=== PATIENT | male | born 1950 | race Caucasian/White ===

== ENCOUNTER → 2017-09-18 09:49 | Emergency (ER) | payer MEDICARE ==
[~2017-09-18 09:49] MED LIST: Meclizine TAB* 12.5 MG PO ONE
[2017-09-18 11:24] LABS: ABS Basophils 0 10^3/ul (0-0.2); ABS Eosinophils 0.1 10^3/ul (0-0.6); ABS Lymphocytes 1.3 10^3/ul (1.0-4.8); ABS Monocytes 0.5 10^3/ul (0-0.8); ABS Neutrophils 5.3 10^3/ul (1.5-7.7); ABS Nucleated RBC 0 10^3/ul; Eosinophil % 1.1 % (0-6); Hematocrit 43 % (42-52); Lymphocyte % 17.8 % (25-47); Mean Corpuscular HGB Conc 34 g/dl (31-36); Mean Corpuscular Hemoglobin 31 pg (27-31); Mean Corpuscular Volume 90 fL (80-94); Mean Platelet Volume 6.5 um3 (7.4-10.4); Nucleated Red Blood Cells % 0.3; Platelet Count 378 10^3/ul (150-450); Red Blood Count 4.84 10^6/ul (4.0-5.4); Red Cell Distribution Width 14 % (10.5-15); White Blood Count 7.2 10^3/ul (3.5-10.8)
--- NOTE | 2017-09-18 11:24 | RAD ---
Indication: Hypertension, dizziness. Single frontal view of the chest performed at 1103 hours was reviewed. No prior study is available for comparison. No mediastinal shift is noted. Heart is of normal size and configuration. Lung powell appear clear. IMPRESSION: NO ACTIVE CARDIOPULMONARY DISEASE IS NOTED.
[2017-09-18 11:32] LABS: INR 0.9 (0.77-1.02)
[2017-09-18 11:45] LABS: EGFR Non-African American 78.6 (>60)
--- NOTE | 2017-09-18 12:14 | RAD ---
HISTORY: Dizziness COMPARISONS: None TECHNIQUE: Multiple contiguous axial CT scans were obtained of the head without intravenous contrast. FINDINGS: HEMORRHAGE/INFARCT: There is no hemorrhage or acute infarct. MASSES/SHIFT: There is no mass or shift. EXTRA-AXIAL SPACES: There are no extra-axial fluid collections. SULCI AND VENTRICLES: The sulci and ventricles are normal in size and position for the patient's stated age. CEREBRUM: There are no focal parenchymal abnormalities. BRAINSTEM: There are no focal parenchymal abnormalities. CEREBELLUM: There are no focal parenchymal abnormalities. VESSELS: The vessels are grossly normal. PARANASAL SINUSES: The paranasal sinuses are clear. ORBITS: The orbits are unremarkable. BONES AND SOFT TISSUE: No bone or soft tissue abnormalities are noted. OTHER: None IMPRESSION: NO ACUTE INTRACRANIAL PATHOLOGY.
--- NOTE | 2017-09-18 13:14 | ED ---
Javier Jade Jennifer, scribed for Eduin Mccloud MD on 09/18/17 at 1025 . Dizziness - HPI Summary HPI Summary: The patient is a 67 y/o M who presents with intermittent dizziness for three days. The patient reports that he went to work this morning when the spinning dizziness worsened at 0900. He describes that moving his head and rolling over in bed worsens the dizziness. Patient additionally complains of a runny nose and cough. He denies headache, abdominal pain, visual changes, difficulty with speech, weakness, numbness, and unsteady gait. The patient adds that he stopped taking diabetic medication two days ago because he thought that might have been causing the dizziness. He has not taken his diabetic or blood pressure medication today. - History Of Current Complaint Chief Complaint: EDDizziness Stated Complaint: DIZZINESS Time Seen by Provider: 09/18/17 10:18 Hx Obtained From: Patient Onset/Duration: Still Present, Suddenly Timing: Intermittent Episode Lasting Severity Initially: Mild Severity Currently: Mild Character: Head Spinning Aggravating Factor(s): Position Change - Rolling over in bed, Change In Head Position Alleviating Factor(s): Nothing - Allergies/Home Medications Allergies/Adverse Reactions: Allergies Allergy/AdvReac Type Severity Reaction Status Date / Time No Known Allergies Allergy Verified 09/18/17 09:53 Home Medications: Home Medications Benazepril (NF) [Lotensin (NF)] 10 mg PO BID 09/18/17 [History Confirmed ] Pravastatin (NF) [Pravachol (NF)] 40 mg PO BEDTIME 09/18/17 [History Confirmed 09/18/17] amLODIPine TAB* [Norvasc 5 mg TAB*] 10 mg PO DAILY 09/18/17 [History Confirmed 09/18/17] metFORMIN* [Glucophage 500 MG TAB *] 500 mg PO BID 09/18/17 [History Confirmed 09/18/17] PMH/Surg Hx/FS Hx/Imm Hx Endocrine/Hematology History: Reports: Hx Diabetes Cardiovascular History: Reports: Hx Hypertension Infectious Disease History: No Infectious Disease History: Denies: Traveled Outside the [place] in Last 30 Days - Family History Known Family History: Positive: Hypertension - Father - Social History Alcohol Use: Occasionally Hx Substance Use: No Substance Use Type: Reports: None Hx Tobacco Use: Yes Smoking Status (MU): Former Smoker Review of Systems Eyes: Negative - Visual changes Positive: Nasal Discharge Positive: Cough Negative: Abdominal Pain Neurological: Negative - unsteady gait, Other - Dizziness Negative: Headache, Weakness, Numbness, Slurred Speech All Other Systems Reviewed And Are Negative: Yes Physical Exam - Summary Physical Exam Summary: General: well-appearing, no pain distress Skin: warm, color reflects adequate perfusion, dry Head: normal Eyes: EOMI, DARYL ENT: normal Neck: supple, nontender Respiratory: CTA, breath sounds present Cardiovascular: RRR Abdomen: soft, nontender Bowel: present Musculoskeletal: normal, strength/ROM intact Neurological: sensory/motor intact, A&O x3 Psychological: affect/mood appropriate Triage Information Reviewed: Yes Vital Signs On Initial Exam: Initial Vitals Temp Pulse Resp BP Pulse Ox 97.7 F 69 16 168/86 95 09/18/17 09:53 09/18/17 09:53 09/18/17 09:53 09/18/17 09:53 09/18/17 09:53 Vital Signs Reviewed: Yes Diagnostics - Vital Signs Vital Signs Temp Pulse Resp BP Pulse Ox 09/18/17 09:53 97.7 F 69 16 168/86 95 - Laboratory Lab Results: Lab Results 09/18/17 09/18/17 09/18/17 Range/Units 11:07 11:09 11:09 WBC 7.2 (3.5-10.8) 10^3/ul RBC 4.84 (4.0-5.4) 10^6/ul Hgb 15.0 (14.0-18.0) g/dl Hct 43 (42-52) % MCV 90 (80-94) fL MCH 31 (27-31) pg MCHC 34 (31-36) g/dl RDW 14 (10.5-15) % Plt Count 378 (150-450) 10^3/ul MPV 6.5 L (7.4-10.4) um3 Neut % (Auto) 73.7 (38-83) % Lymph % (Auto) 17.8 L (25-47) % [place] % (Auto) 6.7 (0-7) % Eos % (Auto) 1.1 (0-6) % Baso % (Auto) 0.7 (0-2) % Absolute Neuts (auto) 5.3 (1.5-7.7) 10^3/ul Absolute Lymphs (auto) 1.3 (1.0-4.8) 10^3/ul Absolute Monos (auto) 0.5 (0-0.8) 10^3/ul Absolute Eos (auto) 0.1 (0-0.6) 10^3/ul Absolute Basos (auto) 0 (0-0.2) 10^3/ul Absolute Nucleated RBC 0 10^3/ul Nucleated RBC % 0.3 INR (Anticoag Therapy) 0.90 (0.77-1.02) APTT 35.0 (26.0-36.3) seconds Sodium (139-145) mmol/L Potassium (3.5-5.0) mmol/L Chloride (101-111) mmol/L Carbon Dioxide (22-32) mmol/L Anion Gap (2-11) mmol/L BUN (6-24) mg/dL Creatinine (0.67-1.17) mg/dL Est GFR ( Amer) (>60) Est GFR (Non-Af Amer) (>60) BUN/Creatinine Ratio (8-20) Glucose (70-100) mg/dL Lactic Acid 1.0 (0.5-2.0) mmol/L Calcium (8.6-10.3) mg/dL Magnesium (1.9-2.7) mg/dL Total Bilirubin (0.2-1.0) mg/dL AST (13-39) U/L ALT (7-52) U/L Alkaline Phosphatase (34-104) U/L Troponin I (<0.04) ng/mL C-Reactive Protein (< 5.00) mg/L B-Natriuretic Peptide ( - 100) pg/mL Total Protein (6.4-8.9) g/dL Albumin (3.2-5.2) g/dL Globulin (2-4) g/dL Albumin/Globulin Ratio (1-3) Lipase (11.0-82.0) U/L TSH 18 09/18/17 Range/Units 11:09 11:10 WBC (3.5-10.8) 10^3/ul RBC (4.0-5.4) 10^6/ul Hgb (14.0-18.0) g/dl Hct (42-52) % MCV (80-94) fL MCH (27-31) pg MCHC (31-36) g/dl RDW (10.5-15) % Plt Count (150-450) 10^3/ul MPV (7.4-10.4) um3 Neut % (Auto) (38-83) % Lymph % (Auto) (25-47) % [place] % (Auto) (0-7) % Eos % (Auto) (0-6) % Baso % (Auto) (0-2) % Absolute Neuts (auto) (1.5-7.7) 10^3/ul Absolute Lymphs (auto) (1.0-4.8) 10^3/ul Absolute Monos (auto) (0-0.8) 10^3/ul Absolute Eos (auto) (0-0.6) 10^3/ul Absolute Basos (auto) (0-0.2) 10^3/ul Absolute Nucleated RBC 10^3/ul Nucleated RBC % INR (Anticoag Therapy) (0.77-1.02) APTT (26.0-36.3) seconds Sodium 135 L (139-145) mmol/L Potassium 3.9 (3.5-5.0) mmol/L Chloride 102 (101-111) mmol/L Carbon Dioxide 24 (22-32) mmol/L Anion Gap 9 (2-11) mmol/L BUN 18 (6-24) mg/dL Creatinine 0.95 (0.67-1.17) mg/dL Est GFR ( Amer) 101.1 (>60) Est GFR (Non-Af Amer) 78.6 (>60) BUN/Creatinine Ratio 18.9 (8-20) Glucose 169 H (70-100) mg/dL Lactic Acid (0.5-2.0) mmol/L Calcium 8.9 (8.6-10.3) mg/dL Magnesium 1.9 (1.9-2.7) mg/dL Total Bilirubin 1.00 (0.2-1.0) mg/dL AST 19 (13-39) U/L ALT 23 (7-52) U/L Alkaline Phosphatase 63 (34-104) U/L Troponin I 0.01 (<0.04) ng/mL C-Reactive Protein 5.25 H (< 5.00) mg/L B-Natriuretic Peptide 25 ( - 100) pg/mL Total Protein 7.2 (6.4-8.9) g/dL Albumin 4.1 (3.2-5.2) g/dL Globulin 3.1 (2-4) g/dL Albumin/Globulin Ratio 1.3 (1-3) Lipase 15 (11.0-82.0) U/L TSH Pending Result Diagrams: 09/18/17 11:09 09/18/17 11:09 Lab Statement: Any lab studies that have been ordered have been reviewed, and results considered in the medical decision making process. - Radiology CXR Xray Interpretation: No Acute Changes - NO ACTIVE CARDIOPULMONARY DISEASE IS NOTED. Dr. Mccloud has reviewed this report. Radiology Interpretation Completed By: Radiologist - CT Brain CT CT Interpretation: No Acute Changes - NO ACUTE INTRACRANIAL PATHOLOGY. Dr. Mccloud has reviewed this report. CT Interpretation Completed By: Radiologist - EKG 0957 Cardiac Rate: NL EKG Rhythm: Sinus Rhythm - [address] Segment: Normal Ectopy: None Dizzy Course/Dx - Course Course Of Treatment: DISCUSSED RESULTS WITH PATIENT AND HIS . IMPROVED IN ED. WALKED WITH "90-100%" IMPROVED. F/U PMD; RETURN IF WORSE. - Diagnoses Provider Diagnoses: Vertigo, Hypertension Discharge - Sign-Out/Discharge Documenting (check all that apply): Discharge/Admit/Transfer - Discharge Plan Condition: Stable Disposition: HOME Prescriptions: Meclizine HCl [Motion Sickness Relief] 25 mg PO Q6H PRN #15 tablet PRN Reason: Vertigo Patient Education Materials: Hypertension (ED), Vertigo (ED) Referrals: Joaquin Brewer MD [Primary Care Provider] - Additional Instructions: FOLLOW UP WITH YOUR DOCTOR. RETURN TO THE EMERGENCY DEPARTMENT FOR ANY WORSENING OF YOUR CONDITION; WEAKNESS , NUMBNESS, CHANGES IN VISION OR SPEECH, YOU FEEL ILL OR QUESTIONS OR CONCERNS. - Billing Disposition and Condition Condition: STABLE Disposition: HOME The documentation as recorded by the Javier mckoy Jennifer accurately reflects the service I personally performed and the decisions made by , Eduin Mccloud MD.
[2017-09-18 13:33] VITALS: BP 147/79
== END | disposition home or self-care (01) ==
LOC: ED 09:49
DX: R42 Dizziness and giddiness (principal); I10 Essential (primary) hypertension; Z87.891 Personal history of nicotine dependence
CPT/HCPCS: 36415; 70450; 71045; 80053; 83605; 83690; 83735; 83880; 84443; 84484; 85025; 85610; 85730; 86140; 86618; 93005; 99283; A9270-GY